=== PATIENT | male | born 1990 | race Caucasian/White ===

== ENCOUNTER 2021-01-03 17:53 | Emergency (ER) | payer OTHER, SELFPAY ==
[2021-01-03 18:09] VITALS: BP 137/90; PULSE 95; RESP 17; TEMP 36.5; O2SAT 95
--- NOTE | 2021-01-03 19:22 | ED_ITS ---
HPI - Abdominal Pain <Tushar Zacarias PA-C - Last Filed: 01/04/21 12:08> General Chief Complaint: Abdominal Pain Stated Complaint: Onc Wants CT, Abd Pressure, Leg Numbness Time Seen by Provider: 01/03/21 19:14 Source: patient Mode of arrival: Ambulatory History of Present Illness HPI narrative: 30-year-old male with a history of pulmonary embolism, on Eliquis since December 06 2020, presents to the ED with 1 month of abdominal pressure. 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 Patient endorses no abdominal pain but some pressure that he describes as feeling like he did some crunches. Patient's symptoms have not worsened over the last month. Patient also denies some numbness on his legs intermittently. Patient denies any tingling or weakness. Patient denies fever, chills, chest pain, shortness of breath, nausea, vomiting, abdominal pain, dysuria, lightheadedness, dizziness, syncope. Related Data Home Medications Medication Instructions Recorded Confirmed apixaban 5 mg tablet (Eliquis) 5 mg PO DAILY 01/03/21 01/03/21 folic acid 1 mg tablet 01/03/21 Allergies Allergy/AdvReac Type Severity Reaction Status Date / Time No Known Drug Allergies Allergy Verified 01/03/21 18:15 Review of Systems <Tushar Zacarias PA-C - Last Filed: 01/04/21 12:08> Constitutional Constitutional: Denies chills, Denies fatigue, Denies fever(s), Denies frequent falls, Denies lethargy and Denies weakness Eyes Eyes: Denies change in vision, Denies eye discharge, Denies irritation and Denies loss of vision ENT Ears, Nose, Mouth, and Throat: Denies change in voice, Denies dizziness, Denies neck pain, Denies sore throat and Denies throat swelling Cardiovascular Cardiovascular: Denies chest pain, Denies irregular heart rhythm, Denies lightheadedness, Denies palpitations, Denies dyspnea, Denies dyspnea on exertion and Denies orthopnea Respiratory Respiratory: Denies cough, Denies dyspnea, Denies dyspnea on exertion and Denies wheezing Gastrointestinal Gastrointestinal: Denies abdominal pain, Denies change in bowel habits, Denies diarrhea, Denies nausea and Denies vomiting Comments: Abdominal pressure Musculoskeletal Musculoskeletal: Denies neck pain and Denies numbness Integumentary/Breasts Skin/Breast: Denies pruritus, Denies erythema, Denies rash and Denies wounds Neurologic Neurologic: Denies behavioral changes, Denies confusion, Denies dizziness, Denies frequent falls, Denies loss of vision, Denies numbness and Denies weakness Psychiatric Psychiatric: Denies anxiety, Denies behavioral changes, Denies confusion, Denies depression, Denies homicidal ideation and Denies suicidal ideation Endocrine Endocrine: Denies fatigue, Denies flushing and Denies palpitations Hematologic/Lymphatic Hematologic/Lymphatic: Denies easy bruising Allergic/Immunologic Allergic/Immunologic: Denies urticaria, Denies throat swelling and Denies wheezing Patient History <Tushar Zacarias PA-C - Last Filed: 01/04/21 12:08> Social History Smoking Status: Never smoker Smoking Status: Never smoker alcohol intake frequency: a few times a week Substance Use Type: does not use Exam <Tushar Zacarias PA-C - Last Filed: 01/04/21 12:08> Initial Vital Signs Initial Vital Signs: Vital Signs Temperature 97.7 F 01/03/21 18:09 Pulse Rate 95 H 01/03/21 18:09 Respiratory Rate 17 01/03/21 18:09 Blood Pressure 137/90 01/03/21 18:09 Pulse Oximetry 95 01/03/21 18:09 Const General: cooperative HENOK Head: normocephalic and atraumatic Ears: external ears normal and TM's normal bilaterally Nose: external nose normal and No nasal discharge Face and sinus: sinuses nontender, face symmetric, no sinus tenderness and No dry mucous membranes Mouth: oral mucosae normal and moist mucous membranes Teeth and gingiva: dentition normal Throat: tonsils normal and uvula midline Eyes General: appearance normal, both eyes and all related structures Eyelids: eyelids normal Conjunctivae: conjunctivae normal Sclera: sclerae normal Pupils: PERRL EOM: EOM intact bilaterally Neck Neck: normal visual inspection, trachea midline, No lymphadenopathy, No midline deformity and No JVD Lymphatic: No lymphedema Chest Chest: normal inspection of the chest Resp Effort & Inspection: normal respiratory effort, able to speak in complete sentences, no respiratory distress and no use of accessory muscles Auscultation: clear to auscultation bilaterally, no rales, no rhonchi and no wheezes Cardio Rate: regular rate Rhythm: regular rhythm Heart Sounds: no click, no gallops, no murmurs and no rubs Pulses: normal peripheral pulses GI Inspection: non-distended Palpation: soft, no hepatosplenomegaly, No guarding, No pulsatile mass and No tender Auscultation: normal bowel sounds Other: Abdomen soft, nondistended, nontender to palpation. No CVA tenderness. No guarding, rebound. Back/Spine/Pelvis Back: No CVA tenderness Cervical Spine: cervical ROM normal and No pain with cervical ROM Thoracic/Lumbar Spine: thoracic and lumbar spine normal to inspection Skin General: no rashes or lesions noted, No jaundice and No petechiae Neuro General: patient alert, patient oriented x3, gait normal and no focal motor deficits Speech: speech normal Extrem General: full ROM, no clubbing, cyanosis or edema, no pedal edema and no calf tenderness Psych Appearance: well kempt Mental Status: mental status grossly normal Attitude: cooperative Thought Content: normal and suicidality Judgment: judgment good <Brissa Curran DO - Last Filed: 01/05/21 01:17> Initial Vital Signs Initial Vital Signs: Vital Signs Temperature 97.7 F 01/03/21 18:09 Pulse Rate 95 H 01/03/21 18:09 Respiratory Rate 17 01/03/21 18:09 Blood Pressure 137/90 01/03/21 18:09 Pulse Oximetry 95 01/03/21 18:09 Course <Tushar Zacarias PA-C - Last Filed: 01/04/21 12:08> Course Course Narrative: Labs within normal limits. Abdomen still on re-examine chin. Will discharge home with PCP follow-up and ED return precautions. Orders Ordered: ED Orders 01/03/21 18:16 Complete Blood Count AUTO DIFF Stat Comprehensive Metabolic Panel Stat Lipase Stat EKG-12 Lead Stat 01/03/21 18:17 Prothrombin Time INR Stat Vital Signs Vital signs: Vital Signs - 8 hr 01/03/21 18:09 Temperature 97.7 F Pulse Rate 95 H Respiratory Rate 17 Blood Pressure 137/90 Pulse Oximetry 95 <Brissa Curran DO - Last Filed: 01/05/21 01:17> Orders Ordered: ED Orders 01/03/21 18:16 Complete Blood Count AUTO DIFF Stat Comprehensive Metabolic Panel Stat Lipase Stat EKG-12 Lead Stat 01/03/21 18:17 Prothrombin Time INR Stat Vital Signs Vital signs: Vital Signs - 8 hr 01/03/21 18:09 Temperature 97.7 F Pulse Rate 95 H Respiratory Rate 17 Blood Pressure 137/90 Pulse Oximetry 95 MDM - Abdominal Pain <Hyma TREVOR Zacarias - Last Filed: 01/04/21 12:08> Lab Data Result diagrams: 01/03/21 19:23 01/03/21 19:23 Labs: Lab Results 01/03/21 01/03/21 01/03/21 Range/Units 19:23 19:23 19:23 WBC 10.0 (4.5-11.0) X10^3/uL RBC 5.03 (4.5-5.9) X10^6/uL Hgb 15.9 (13.5-17.5) g/dL Hct 46.3 (41-53) % MCV 92.1 (80-100) fL MCH 31.7 (26-34) PG MCHC 34.4 (30-36) % RDW 13.8 (11.6-14.8) % Plt Count 229 (150-400) X10^3/uL Neut % (Auto) 73.4 (50-75) % Lymph % (Auto) 17.0 L (25-40) % [place] % (Auto) 8.0 (3-14) % Eos % (Auto) 1.1 L (2-4) % Baso % (Auto) 0.5 (0-2) % Neut # (Auto) 7400 H (7444-5175) /uL Lymph # (Auto) 1700 (6861-1940) /uL [place] # (Auto) 800 (0-900) /uL Eos # (Auto) 100 (0-450) /uL Baso # (Auto) 100 (0-100) /uL PT 11.4 (10.1-12.7) SECONDS INR 1.0 (0.9-1.3) Sodium 139 (137-145) mmol/L Potassium 4.4 (3.4-5.1) mmol/L Chloride 102 (98-107) mmol/L Carbon Dioxide 29 (22-32) mmol/L BUN 13 (9-20) mg/dL Creatinine 0.80 (0.66-1.25) mg/dL Estimated GFR > 60.0 (>60) mL/min BUN/Creatinine Ratio 16.3 (6-22) Glucose 101 H (70-100) mg/dL Calcium 9.7 (8.4-10.2) mg/dL Total Bilirubin 0.7 (0.2-1.3) mg/dL AST 61 H (17-59) IU/L ALT 66 H (<50) IU/L Alkaline Phosphatase 60 (38-126) U/L Total Protein 7.9 (6.3-8.2) g/dL Albumin 4.5 (3.5-5.0) g/dL Globulin 3.4 (1.7-4.1) g/dL Albumin/Globulin Ratio 1.3 (1.0-2.8) Lipase 71 (23-300) U/L MDM Narrative Medical decision making narrative: 30-year-old male with a history of pulmonary embolism, on Eliquis since December 06 2020, presents to the ED with 1 month of abdominal pressure. Given benign abdominal exam, no indication for imaging at this time. Patient is already anticoagulated, low suspicion for intra-abdominal VTE. Will check labs, discharge home with ED return precautions, PCP follow-up. <Brissa Curran, - Last Filed: 01/05/21 01:17> Lab Data Labs: Lab Results 01/03/21 01/03/21 01/03/21 Range/Units 19:23 19:23 19:23 WBC 10.0 (4.5-11.0) X10^3/uL RBC 5.03 (4.5-5.9) X10^6/uL Hgb 15.9 (13.5-17.5) g/dL Hct 46.3 (41-53) % MCV 92.1 (80-100) fL MCH 31.7 (26-34) PG MCHC 34.4 (30-36) % RDW 13.8 (11.6-14.8) % Plt Count 229 (150-400) X10^3/uL Neut % (Auto) 73.4 (50-75) % Lymph % (Auto) 17.0 L (25-40) % [place] % (Auto) 8.0 (3-14) % Eos % (Auto) 1.1 L (2-4) % Baso % (Auto) 0.5 (0-2) % Neut # (Auto) 7400 H (9294-6110) /uL Lymph # (Auto) 1700 (8686-1550) /uL [place] # (Auto) 800 (0-900) /uL Eos # (Auto) 100 (0-450) /uL Baso # (Auto) 100 (0-100) /uL PT 11.4 (10.1-12.7) SECONDS INR 1.0 (0.9-1.3) Sodium 139 (137-145) mmol/L Potassium 4.4 (3.4-5.1) mmol/L Chloride 102 (98-107) mmol/L Carbon Dioxide 29 (22-32) mmol/L BUN 13 (9-20) mg/dL Creatinine 0.80 (0.66-1.25) mg/dL Estimated GFR > 60.0 (>60) mL/min BUN/Creatinine Ratio 16.3 (6-22) Glucose 101 H (70-100) mg/dL Calcium 9.7 (8.4-10.2) mg/dL Total Bilirubin 0.7 (0.2-1.3) mg/dL AST 61 H (17-59) IU/L ALT 66 H (<50) IU/L Alkaline Phosphatase 60 (38-126) U/L Total Protein 7.9 (6.3-8.2) g/dL Albumin 4.5 (3.5-5.0) g/dL Globulin 3.4 (1.7-4.1) g/dL Albumin/Globulin Ratio 1.3 (1.0-2.8) Lipase 71 (23-300) U/L Discharge Plan Departure Patient Disposition: Home Clinical Impression: Abdominal pain Qualifiers: Abdominal location: generalized Qualified Code(s): R10.84 - Generalized abdominal pain Instructions: DI for Abdominal Pain-Adult Activity Restrictions/Additional Instructions: You were evaluated in the ED today for abdominal pressure. Your labs were normal. Please return to the ED if your symptoms worsen. Follow-up with your primary care provider. Prescriptions: No Action folic acid 1 mg tablet RF: 0 Eliquis 5 mg tablet 5 mg PO DAILY RF: 0 Referrals: Zana Weiss [Primary Care Provider] - <Brissa Curran DO - Last Filed: 01/05/21 01:17> Cosign ED Attending Cosignature Attestation: I was immediately available in the department for consultation. Documentation has been reviewed.
[2021-01-03 19:30] VITALS: BP 138/88; PULSE 82; RESP 18; O2SAT 97
[2021-01-03 19:32] LABS: Add Manual Diff / Slide Review NO; Basophils Absolute Auto 100 /uL (0-100); Basophils Percent Auto 0.5 % (0-2); Eosinophils Absolute Auto 100 /uL (0-450); Eosinophils Percent Auto 1.1 % (2-4); Hematocrit 46.3 % (41-53); Hemoglobin 15.9 g/dL (13.5-17.5); Lymphocytes Absolute Auto 1700 /uL (1100-4500); Mean Corpuscular HGB Conc 34.4 % (30-36); Mean Corpuscular Hemoglobin 31.7 PG (26-34); Mean Corpuscular Volume 92.1 fL (80-100); Monocytes Absolute Auto 800 /uL (0-900); Neutrophils Absolute Auto 7400 /uL (1500-7000); Neutrophils Percent Auto 73.4 % (50-75); Platelet Count 229 X10^3/uL (150-400); Red Blood Cell Count 5.03 X10^6/uL (4.5-5.9); Red Cell Distribution Width 13.8 % (11.6-14.8)
[2021-01-03 19:39] LABS: Prothrombin Time 11.4 SECONDS (10.1-12.7)
[2021-01-03 19:45] LABS: Alanine Aminotransferase 66 IU/L (<50); Albumin 4.5 g/dL (3.5-5.0); Albumin Globulin Ratio 1.3 (1.0-2.8); Alkaline Phosphatase 60 U/L (38-126); Aspartate Aminotransferase 61 IU/L (17-59); BUN Creatinine Ratio 16.3 (6-22); Bilirubin Total 0.7 mg/dL (0.2-1.3); Blood Urea Nitrogen 13 mg/dL (9-20); Calcium 9.7 mg/dL (8.4-10.2); Carbon Dioxide 29 mmol/L (22-32); Chloride 102 mmol/L (98-107); Estimated Glomerular Filt Rate > 60.0 mL/min (>60); Globulin 3.4 g/dL (1.7-4.1); Glucose 101 mg/dL (70-100); HEMOLYSIS < 15 (0-50); Lipase 71 U/L (23-300); Potassium 4.4 mmol/L (3.4-5.1); Sodium 139 mmol/L (137-145); Total Protein 7.9 g/dL (6.3-8.2)
== END 2021-01-03 20:00 | disposition home or self-care (01) ==
PROVIDERS: Emergency Medicine; Emergency Provider Student in an Organized Health Care Education/Training Program
DX: R10.84 Generalized abdominal pain (principal); Z86.711 Personal history of pulmonary embolism; Z79.01 Long term (current) use of anticoagulants
CPT/HCPCS: 80053; 83690; 85025; 85610; 93005; 99283; 99284

== ENCOUNTER 2022-03-27 13:13 | Emergency (ER) | payer OTHER, SELFPAY ==
[2022-03-27] VITALS (7 sets, daily range): BP systolic 127–150; BP diastolic 66–93; PULSE 69–99; RESP 12–18; TEMP 37.1; O2SAT 96–98; BMI 37.3
--- NOTE | 2022-03-27 13:22 | DI.RAD.S_ITS ---
PROCEDURE: XR CHEST 1V INDICATIONS: chest pain TECHNIQUE: One view of the chest was acquired. COMPARISON: None. FINDINGS: Surgical changes and devices: None. Lungs and pleura: Lungs are clear. No pleural effusions or pneumothorax. Mediastinum: Mediastinal contours appear normal. Heart size is normal. Bones and chest wall: No suspicious bony lesions. Overlying soft tissues appear unremarkable. IMPRESSION: No acute cardiopulmonary pathology. Dictated by: Evan Acevedo M.D. on 03/27/2022 at 14:47 Approved by: Evan Acevedo M.D. on 03/27/2022 at 14:48
[2022-03-27 14:06] LABS: Add Manual Diff / Slide Review NO; Basophils Absolute Auto 0 /uL (0-100); Basophils Percent Auto 0.5 % (0-2); Eosinophils Absolute Auto 100 /uL (0-450); Eosinophils Percent Auto 1.5 % (2-4); Hematocrit 46.8 % (41-53); Hemoglobin 16.3 g/dL (13.5-17.5); Lymphocytes Absolute Auto 1700 /uL (1100-4500); Lymphocytes Percent Auto 21.3 % (25-40); Mean Corpuscular HGB Conc 34.8 % (30-36); Mean Corpuscular Hemoglobin 29.8 PG (26-34); Mean Corpuscular Volume 85.6 fL (80-100); Monocytes Absolute Auto 600 /uL (0-900); Neutrophils Absolute Auto 5700 /uL (1500-7000); Neutrophils Percent Auto 69.7 % (50-75); Platelet Count 271 X10^3/uL (150-400); Red Blood Cell Count 5.47 X10^6/uL (4.5-5.9); Red Cell Distribution Width 12.6 % (11.6-14.8); White Blood Cell Count 8.2 X10^3/uL (4.5-11.0)
[2022-03-27 14:12] LABS: Prothrombin Time 11.8 SECONDS (10.1-12.7)
[2022-03-27 14:15] LABS: PTT Partial Thromboplastin Tim 31 SECONDS (26-36)
[2022-03-27 14:17] LABS: Alanine Aminotransferase 65 IU/L (<50); Albumin 4.6 g/dL (3.5-5.0); Albumin Globulin Ratio 1.2 (1.0-2.8); Alkaline Phosphatase 50 U/L (38-126); Aspartate Aminotransferase 37 IU/L (17-59); BUN Creatinine Ratio 16.5 (6-22); Bilirubin Total 0.5 mg/dL (0.2-1.3); Blood Urea Nitrogen 15 mg/dL (9-20); Calcium 9.2 mg/dL (8.4-10.2); Carbon Dioxide 24 mmol/L (22-32); Chloride 104 mmol/L (98-107); Creatine Kinase 109 U/L (55-170); Estimated Glomerular Filt Rate > 60 mL/min (>60); Globulin 3.8 g/dL (1.7-4.1); Glucose 120 mg/dL (70-100); HEMOLYSIS < 15 (0-50); Lipase 68 U/L (23-300); Magnesium 2.1 mg/dL (1.6-2.3); Potassium 4.3 mmol/L (3.4-5.1); Sodium 138 mmol/L (137-145); Total Protein 8.4 g/dL (6.3-8.2)
[2022-03-27 14:29] LABS: Troponin I < 0.012 ng/mL (0.01-0.034)
[2022-03-27 14:32] LABS: CKMB % Relative Index 0.5 % (1.5-5.0); Creatine Kinase MB 0.56 ng/mL (<2.37)
--- NOTE | 2022-03-27 14:38 | ED_ITS ---
HPI - Chest Pain <Tushar Zacarias PA-C - Last Filed: 03/27/22 16:03> General Chief Complaint: Chest Pain Stated Complaint: sent by DR/isreal quiroz chest pain x7days Time Seen by Provider: 03/27/22 14:00 Source: patient Mode of arrival: Family Vehicle Limitations: no limitations History of Present Illness HPI narrative: 31-year-old male with past medical history pulmonary embolism presents to the ED with 1 week of substernal and left-sided chest pain. Patient describes the pain as sharp, intermittent. Endorses that it sometimes radiates up to the left shoulder. Aggravated by laying flat, deep inspiration. Improves with sitting up. Denies fever, chills, cough, sore throat, shortness of breath, nausea, vomiting, abdominal pain, lightheadedness, dizziness, syncope. Patient has a p rior history of pulmonary embolism. Patient was on blood thinners for 6 months, after which blood thinners were stopped by Dr. Pennington. Patient endorses drinking alcohol occasionally, has not drunk alcohol for the past few days. Patient denies tobacco use, recreational drug use. Related Data Home Medications Medication Instructions Recorded Confirmed vitamin B complex 1,000 tab PO DAILY 08/15/21 02/20/22 Allergies Allergy/AdvReac Type Severity Reaction Status Date / Time No Known Drug Allergies Allergy Verified 01/03/21 18:15 Review of Systems <Tushar Zacarias PA-C - Last Filed: 03/27/22 16:03> Review of Systems ROS Unobtainable: All systems reviewed & are unremarkable except as noted in HPI and below Constitutional Constitutional: Denies chills, Denies fatigue, Denies fever(s), Denies frequent falls, Denies lethargy and Denies weakness Eyes Eyes: Denies change in vision, Denies eye discharge, Denies irritation and Denies loss of vision ENT Ears, Nose, Mouth, and Throat: Denies change in voice, Denies dizziness, Denies neck pain, Denies sore throat and Denies throat swelling Cardiovascular Cardiovascular: Reports chest pain, Denies irregular heart rhythm, Denies lightheadedness, Denies palpitations, Denies dyspnea, Denies dyspnea on exertion and Denies orthopnea Respiratory Respiratory: Denies cough, Denies dyspnea, Denies dyspnea on exertion and Denies wheezing Gastrointestinal Gastrointestinal: Denies abdominal pain, Denies change in bowel habits, Denies diarrhea, Denies nausea and Denies vomiting Genitourinary Genitourinary: Denies hematuria, Denies flank pain, Denies urinary incontinence and Denies urinary urgency Musculoskeletal Musculoskeletal: Denies back pain, Denies muscle weakness, Denies neck pain, Denies numbness and Denies tingling Integumentary/Breasts Skin/Breast: Denies pruritus, Denies erythema, Denies rash and Denies wounds Neurologic Neurologic: Denies behavioral changes, Denies confusion, Denies dizziness, Denies frequent falls, Denies loss of vision, Denies numbness, Denies tingling and Denies weakness Psychiatric Psychiatric: Denies anxiety, Denies behavioral changes, Denies confusion, Denies depression, Denies homicidal ideation and Denies suicidal ideation Endocrine Endocrine: Denies fatigue, Denies flushing and Denies palpitations Hematologic/Lymphatic Hematologic/Lymphatic: Denies easy bruising Allergic/Immunologic Allergic/Immunologic: Denies urticaria, Denies throat swelling and Denies wheezing Patient History <Tushar Zacarias PA-C - Last Filed: 03/27/22 16:03> Family History Father Prostate cancer Mother Glaucoma Social History Smoking Status: Never smoker alcohol intake: former (started 21 yo, light x few yeas and heavy x fews yeas. Now stopped since the past week. either beer or liqior. ) substance use type: does not use Smoking Status: Never smoker alcohol intake frequency: a few times a month Substance Use Type: does not use Exam <Tushar Zacarias PA-C - Last Filed: 03/27/22 16:03> Narrative Exam Narrative: Const General:?cooperative, healthy appearing and comfortable [facility] Head:?normal to inspection Ears:?hearing grossly normal bilaterally Nose:?external nose normal Face and sinus:?normal facial exam and sinuses nontender Mouth:?oral mucosae normal Throat:?posterior oropharynx normal Eyes General:?appearance normal, both eyes and all related structures Neck Neck:?normal visual inspection and no lymphadenopathy noted Resp Effort & Inspection:?normal respiratory effort Auscultation:?clear to auscultation bilaterally Cardio Rate:?regular rate Rhythm:?regular rhythm Pain not reproducible with pressure to chest wall. Neuro General:?patient alert, patient awake and patient oriented x3 Initial Vital Signs Initial Vital Signs: Vital Signs Temperature 98.7 F 03/27/22 13:22 Pulse Rate 99 H 03/27/22 13:22 Respiratory Rate 18 03/27/22 13:22 Blood Pressure 150/93 H 03/27/22 13:22 Pulse Oximetry 98 03/27/22 13:22 Oxygen Delivery Method 03/27/22 13:22 <Wendy Campbell DO - Last Filed: 03/28/22 09:55> Initial Vital Signs Initial Vital Signs: Vital Signs Temperature 98.7 F 03/27/22 13:22 Pulse Rate 99 H 03/27/22 13:22 Respiratory Rate 18 03/27/22 13:22 Blood Pressure 150/93 H 03/27/22 13:22 Pulse Oximetry 98 03/27/22 13:22 Oxygen Delivery Method 03/27/22 13:22 Course <Tushar Zacarias PA-C - Last Filed: 03/27/22 16:03> Orders Ordered: Discontinued Medications Aspirin (Aspirin 81 Mg Chew Tab) 324 mg PO NOW ONE Stop: 03/27/22 13:23 Last Admin: 03/27/22 16:40 Dose: Not Given Documented By: BORIS Al Hydrox/Mg Hydrox/Simethicone 20 ml/ Lidocaine HCl 15 ml 0 ml PO NOW ONE Stop: 03/27/22 15:31 Last Admin: 03/27/22 16:36 Dose: Not Given Documented By: NR Famotidine (Famotidine 20 Mg/2 Ml Vial) 20 mg IV NOW ONE Stop: 03/27/22 15:46 Last Admin: 03/27/22 16:21 Dose: 20 mg Documented By: NR Ibuprofen (Ibuprofen 400 Mg Tablet) 800 mg PO NOW ONE Stop: 03/27/22 15:31 Last Admin: 03/27/22 16:21 Dose: 800 mg Documented By: NR Vital Signs Vital signs: Vital Signs - 8 hr 03/27/22 13:22 Temperature 98.7 F Pulse Rate 99 H Respiratory Rate 18 Blood Pressure 150/93 H Pulse Oximetry 98 Oxygen Delivery Method Room Air <Wendy Campbell DO - Last Filed: 03/28/22 09:55> Orders Ordered: Discontinued Medications Aspirin (Aspirin 81 Mg Chew Tab) 324 mg PO NOW ONE Stop: 03/27/22 13:23 Last Admin: 03/27/22 16:40 Dose: Not Given Documented By: BORIS Al Hydrox/Mg Hydrox/Simethicone 20 ml/ Lidocaine HCl 15 ml 0 ml PO NOW ONE Stop: 03/27/22 15:31 Last Admin: 03/27/22 16:36 Dose: Not Given Documented By: NR Famotidine (Famotidine 20 Mg/2 Ml Vial) 20 mg IV NOW ONE Stop: 03/27/22 15:46 Last Admin: 03/27/22 16:21 Dose: 20 mg Documented By: NR Ibuprofen (Ibuprofen 400 Mg Tablet) 800 mg PO NOW ONE Stop: 03/27/22 15:31 Last Admin: 03/27/22 16:21 Dose: 800 mg Documented By: NR Vital Signs Vital signs: Vital Signs - 8 hr 03/27/22 13:22 Temperature 98.7 F Pulse Rate 99 H Respiratory Rate 18 Blood Pressure 150/93 H Pulse Oximetry 98 Oxygen Delivery Method Room Air MDM - Chest Pain <Tushar Zacarias PA-C - Last Filed: 03/27/22 16:03> Lab Data Result diagrams: 03/27/22 13:45 03/27/22 13:45 Labs: Lab Results 03/27/22 03/27/22 03/27/22 Range/Units 13:45 13:45 13:45 WBC 8.2 (4.5-11.0) X10^3/uL RBC 5.47 (4.5-5.9) X10^6/uL Hgb 16.3 (13.5-17.5) g/dL Hct 46.8 (41-53) % MCV 85.6 (80-100) fL MCH 29.8 (26-34) PG MCHC 34.8 (30-36) % RDW 12.6 (11.6-14.8) % Plt Count 271 (150-400) X10^3/uL Neut % (Auto) 69.7 (50-75) % Lymph % (Auto) 21.3 L (25-40) % [place] % (Auto) 7.0 (3-14) % Eos % (Auto) 1.5 L (2-4) % Baso % (Auto) 0.5 (0-2) % Neut # (Auto) 5700 (0483-2907) /uL Lymph # (Auto) 1700 (4194-4176) /uL [place] # (Auto) 600 (0-900) /uL Eos # (Auto) 100 (0-450) /uL Baso # (Auto) 0 (0-100) /uL PT 11.8 (10.1-12.7) SECONDS INR 1.0 (0.9-1.3) APTT 31 (26-36) SECONDS Sodium 138 (137-145) mmol/L Potassium 4.3 (3.4-5.1) mmol/L Chloride 104 (98-107) mmol/L Carbon Dioxide 24 (22-32) mmol/L BUN 15 (9-20) mg/dL Creatinine 0.91 (0.66-1.25) mg/dL Estimated GFR > 60 (>60) mL/min BUN/Creatinine Ratio 16.5 (6-22) Glucose 120 H (70-100) mg/dL Calcium 9.2 (8.4-10.2) mg/dL Magnesium 2.1 (1.6-2.3) mg/dL Total Bilirubin 0.5 (0.2-1.3) mg/dL AST 37 (17-59) IU/L ALT 65 H (<50) IU/L Alkaline Phosphatase 50 (38-126) U/L Total Creatine Kinase 109 (55-170) U/L CK-MB (CK-2) 0.56 (<2.37) ng/mL CK-MB (CK-2) Rel Index 0.5 L (1.5-5.0) % Troponin I < 0.012 (0.01-0.034) ng/mL Total Protein 8.4 H (6.3-8.2) g/dL Albumin 4.6 (3.5-5.0) g/dL Globulin 3.8 (1.7-4.1) g/dL Albumin/Globulin Ratio 1.2 (1.0-2.8) Lipase 68 (23-300) U/L Imaging Data Chest x-ray: Radiologist's Impression: PROCEDURE:? XR CHEST 1V ? INDICATIONS:? chest pain ? TECHNIQUE:? One view of the chest was acquired.? ? COMPARISON:? None. ? FINDINGS:? ? Surgical changes and devices:? None.? ? Lungs and pleura:? Lungs are clear.? No pleural effusions or pneumothorax.? ? Mediastinum:? Mediastinal contours appear normal.? Heart size is normal.? ? Bones and chest wall:? No suspicious bony lesions.? Overlying soft tissues appear unremarkable.? ? IMPRESSION:? No acute cardiopulmonary pathology. ? ? Dictated by: Evan Acevedo M.D. on 03/27/2022 at 14:47 ? ? Approved by: Evan Acevedo M.D. on 03/27/2022 at 14:48 ? CT scan - chest: Radiologist's Impression: PROCEDURE:? CT ANGIO CHEST PE PROTOCOL ? INDICATIONS:? chest pain; hx of PE ? TECHNIQUE:? After the administration of intravenous contrast, 2 mm thick sections acquired from the pulmonary apices to the posterior costophrenic angles.? 3-dimensional maximum intensity projection (MIP) coronal and sagittal reformats were then acquired through the thorax.? For radiation dose reduction, the following was used:? automated exposure control, adjustment of mA and/or kV according to patient size.? ? COMPARISON:? None. ? FINDINGS:? Image quality:? Excellent.? ? Pulmonary arteries:? Pulmonary arteries are normal in size, and demonstrate no intraluminal filling defects to suggest central pulmonary embolism.? ? Lungs and pleura:? Lungs are clear.? No pleural effusions or pneumothorax.? Central and peripheral airways are patent.? ? Mediastinum:? Heart size is normal, without pericardial effusion.? No mediastinal or hilar adenopathy.? Thoracic aorta is normal in caliber and enhancement.? Esophagus is normal in caliber, without hiatal hernia.? ? Bones and chest wall:? No suspicious bony lesions.? Ribs and thoracic spine appear intact throughout.? Thyroid gland is unremarkable as visualized.? No axillary or supraclavicular adenopathy.? ? Abdomen:? Visualized upper abdominal solid organs appear normal in the early arterial phase of enhancement.? ? IMPRESSION:? ? 1. No evidence acute pulmonary emboli. ? 2. No evidence acute pulmonary process.? ? ? Dictated by: Jordan Montes M.D. on 03/27/2022 at 15:11 ? ? Approved by: Jordan Montes M.D. on 03/27/2022 at 15:14 ? MDM Narrative Medical decision making narrative: 31-year-old male with past medical history pulmonary embolism presents to the ED with 1 week of substernal and left-sided chest pain. Concern for pulmonary embolism versus pneumonia versus musculoskeletal sprain/strain versus ACS versus other. Will obtain labs, chest x-ray, EKG, troponin, CT PE. Will reassess. Workup largely unremarkable. EKG, chest x-ray, CT PE, labs without acute findings. Will trial GI cocktail, Pepcid AC, ibuprofen for symptoms. Patient discharged home with ED return precautions. He verbalized understanding. <Wendy Campbell, - Last Filed: 03/28/22 09:55> Lab Data Labs: Lab Results 03/27/22 03/27/22 03/27/22 Range/Units 13:45 13:45 13:45 WBC 8.2 (4.5-11.0) X10^3/uL RBC 5.47 (4.5-5.9) X10^6/uL Hgb 16.3 (13.5-17.5) g/dL Hct 46.8 (41-53) % MCV 85.6 (80-100) fL MCH 29.8 (26-34) PG MCHC 34.8 (30-36) % RDW 12.6 (11.6-14.8) % Plt Count 271 (150-400) X10^3/uL Neut % (Auto) 69.7 (50-75) % Lymph % (Auto) 21.3 L (25-40) % [place] % (Auto) 7.0 (3-14) % Eos % (Auto) 1.5 L (2-4) % Baso % (Auto) 0.5 (0-2) % Neut # (Auto) 5700 (6156-1145) /uL Lymph # (Auto) 1700 (5629-6214) /uL [place] # (Auto) 600 (0-900) /uL Eos # (Auto) 100 (0-450) /uL Baso # (Auto) 0 (0-100) /uL PT 11.8 (10.1-12.7) SECONDS INR 1.0 (0.9-1.3) APTT 31 (26-36) SECONDS Sodium 138 (137-145) mmol/L Potassium 4.3 (3.4-5.1) mmol/L Chloride 104 (98-107) mmol/L Carbon Dioxide 24 (22-32) mmol/L BUN 15 (9-20) mg/dL Creatinine 0.91 (0.66-1.25) mg/dL Estimated GFR > 60 (>60) mL/min BUN/Creatinine Ratio 16.5 (6-22) Glucose 120 H (70-100) mg/dL Calcium 9.2 (8.4-10.2) mg/dL Magnesium 2.1 (1.6-2.3) mg/dL Total Bilirubin 0.5 (0.2-1.3) mg/dL AST 37 (17-59) IU/L ALT 65 H (<50) IU/L Alkaline Phosphatase 50 (38-126) U/L Total Creatine Kinase 109 (55-170) U/L CK-MB (CK-2) 0.56 (<2.37) ng/mL CK-MB (CK-2) Rel Index 0.5 L (1.5-5.0) % Troponin I < 0.012 (0.01-0.034) ng/mL Total Protein 8.4 H (6.3-8.2) g/dL Albumin 4.6 (3.5-5.0) g/dL Globulin 3.8 (1.7-4.1) g/dL Albumin/Globulin Ratio 1.2 (1.0-2.8) Lipase 68 (23-300) U/L ECG Data Interpretation: [place] Normal sinus rhythm rate 100 IL interval 134 QRS 80 QTC 443 T-wave inversion noted in lead 3 similar to previous E[place] [address] changes EKG 2. Sinus rhythm rate 75 persistent T-wave inversion in lead 3 only Discharge Plan Departure Patient Disposition: Home Clinical Impression: Chest pain Instructions: DI for Chest Pain Activity Restrictions/Additional Instructions: You were evaluated in the ED today for chest pain. Your chest x-ray, EKG, CT, labs were normal. It is possible that your chest pain is being caused by acid reflux or a musculoskeletal sprain/strain. You may take Pepcid AC twice daily for the next 14 days, ibuprofen for pain. If your chest pain worsens, you experience trouble breathing, please return to the ED. Prescriptions: No Action vitamin B complex Tablet 1,000 tab PO DAILY Referrals: ProviderObie [Primary Care Provider] - Visit Report Forms: Patient Portal/API <Wendy Campbell, DO - Last Filed: 03/28/22 09:55> Cosign ED Attending Cosignature Attestation: I was immediately available in the department for consultation. Documentation has been reviewed. I agree with assessment and plan.
--- NOTE | 2022-03-27 14:45 | DI.CT.S_ITS ---
PROCEDURE: CT ANGIO CHEST PE PROTOCOL INDICATIONS: chest pain; hx of PE TECHNIQUE: After the administration of intravenous contrast, 2 mm thick sections acquired from the pulmonary apices to the posterior costophrenic angles. 3-dimensional maximum intensity projection (MIP) coronal and sagittal reformats were then acquired through the thorax. For radiation dose reduction, the following was used: automated exposure control, adjustment of mA and/or kV according to patient size. COMPARISON: None. FINDINGS: Image quality: Excellent. Pulmonary arteries: Pulmonary arteries are normal in size, and demonstrate no intraluminal filling defects to suggest central pulmonary embolism. Lungs and pleura: Lungs are clear. No pleural effusions or pneumothorax. Central and peripheral airways are patent. Mediastinum: Heart size is normal, without pericardial effusion. No mediastinal or hilar adenopathy. Thoracic aorta is normal in caliber and enhancement. Esophagus is normal in caliber, without hiatal hernia. Bones and chest wall: No suspicious bony lesions. Ribs and thoracic spine appear intact throughout. Thyroid gland is unremarkable as visualized. No axillary or supraclavicular adenopathy. Abdomen: Visualized upper abdominal solid organs appear normal in the early arterial phase of enhancement. IMPRESSION: 1. No evidence acute pulmonary emboli. 2. No evidence acute pulmonary process. Dictated by: Jordan Montes M.D. on 03/27/2022 at 15:11 Approved by: Jordan Montes M.D. on 03/27/2022 at 15:14
[2022-03-27] MEDS: IBUPROFEN 400 MG TABLET 800 MG PO (16:21)
[2022-03-27] MEDS: FAMOTIDINE 20 MG/2 ML VIAL IV (16:21)
== END 2022-03-27 17:03 | disposition home or self-care (01) ==
PROVIDERS: Emergency Medicine; Emergency Provider Student in an Organized Health Care Education/Training Program
DX: R07.9 Chest pain, unspecified (principal)
CPT/HCPCS: 36415; 71045; 71275; 80053; 82550; 82553; 83690; 83735; 84484; 85025; 85610; 85730; 93005; 96374; 99284; Q9967